=== PATIENT | female | born 1970 | race Caucasian/White ===

== ENCOUNTER 2024-03-31 12:56 | Emergency (ER) | payer BC, SELFPAY ==
[2024-03-31 12:58] VITALS: BP 166/70; PULSE 61; RESP 20; TEMP 35.6; O2SAT 100; BMI 49.6
--- NOTE | 2024-03-31 13:29 | ED.VIS.GI ---
HPI HPI - GI History of Present Illness Chief Complaint: Nausea/Vomiting Informant: patient and spouse/S.O. Nausea/Vomiting/Emesis GI Symptom: Positive for Nausea and Vomiting Onset: Today Severity: Mild Diarrhea/Melena/Hematochezia GI Symptom: Negative for Diarrhea, Melena or Hematochezia Associated Symptoms Associated Symptoms: Negative for Dysuria, Frequency, Hematuria or Urgency Narrative Narrative: 53-year-old female history gastroparesis, irritable bowel, vertigo, fibromyalgia, A-fib on Eliquis. Started having nausea and vomiting today. Recently had vertigo type symptoms which she has had before. got her [id number] meclizine which has helped her symptoms. Recently she was diagnosed with sinus infection and was on 10 days of doxycycline which is been finished. She denies any headache. She denies any diarrhea or melena. She really denies any abdominal pain. No dysuria. Prior similar symptoms: Yes Recent Illness/Hospitalization: No PFSH PFSH Medical History Hyperlipemia Hiatal hernia Sciatic leg pain Asthma Gastroparesis Irritable bowel syndrome Acid reflux Spinal stenosis Migraine Venous insufficiency Fibromyalgia PMR (polymyalgia rheumatica) Rheumatoid arthritis HTN (hypertension) Afib Aneurysm Home Medications ?Medication ?Instructions ?Recorded ?Last Taken ?Type apixaban 5 mg tablet (Eliquis) 5 mg PO BID 03/31/24 Unknown History cholecalciferol (vitamin D3) 50 2,000 unit PO BID 03/31/24 Unknown History mcg (2,000 unit) capsule (D3-2000) estradiol 1 mg tablet 1 mg PO DAILY 03/31/24 Unknown History etodolac 400 mg tablet 400 mg PO BID 03/31/24 Unknown History folic acid 1 mg tablet 1 mg PO DAILY 03/31/24 Unknown History furosemide 20 mg tablet 20 mg PO DAILY PRN edema 03/31/24 Unknown History gabapentin 100 mg capsule 100 mg PO BID 03/31/24 Unknown History glucosamine-chondroitin 250 mg-200 2 tab PO TID 03/31/24 Unknown History mg tablet (Osteo Bi-Flex) meclizine 25 mg chewable tablet 25 mg PO TID PRN dizziness #14 tabs 03/31/24 Unknown Rx (Antivert) metoprolol succinate 50 mg PO DAILY 03/31/24 Unknown History omega-3 fatty acids 1,000 mg 1,000 mg PO DAILY 03/31/24 Unknown History capsule omeprazole 40 mg capsule,delayed 40 mg PO DAILY 03/31/24 Unknown History release ondansetron 4 mg disintegrating 4 mg PO Q6H PRN nausea and 03/31/24 Unknown Rx tablet vomiting #10 tabs potassium chloride 10 mEq 10 meq PO DAILY 03/31/24 Unknown History capsule,extended release rizatriptan 10 mg tablet (Maxalt) 10 mg PO Q2H PRN migraine headache 03/31/24 Unknown History tizanidine 4 mg capsule (Zanaflex) 4 mg PO QHS 03/31/24 Unknown History ubidecarenone-omega 3-vit E 50 1 cap PO DAILY 03/31/24 Unknown History mg-300 (180-120)mg-30 unit capsule Allergy/AdvReac Type Severity Reaction Status Date / Time Iodinated Contrast Media Allergy Severe Hives Verified 03/31/24 13:11 (contrast dye - iodinated) Penicillins (PCN) AdvReac Severe Anaphylaxis Verified 03/31/24 13:11 albuterol AdvReac Mild Other Verified 03/31/24 13:11 Social History household members: spouse housing: house Smoking Status: Former smoker ROS ROS ED ROS Narrative Nausea and vomiting. Review of Systems ROS Unobtainable: Denies due to encephalopathy Constitutional Constitutional ED: Denies chills or fever(s) ENT ENT ED: Denies ear pain Cardiovascular Cardiovascular: Denies chest pain Respiratory/Chest Respiratory/Chest: Denies cough or dyspnea Gastrointestinal Gastrointestinal: Reports nausea and vomiting; Denies abdominal pain, constipation, diarrhea or melena Genitourinary Genitourinary ED: Denies dysuria or hematuria Musculoskeletal Musculoskeletal: Denies arthralgias Integumentary Denies abscess or Abrasions Neurologic Neurologic: Denies headache(s) Psychiatric Psychiatric: Denies anxiety Endocrine Endocrinology: Denies polydipsia Hematologic/Lymphatic Hematologic/Lymphatic: Denies lymphadenopathy Allergic/Immunologic Allergic/Immunologic ED: Denies mouth swelling, tongue swelling or urticaria EXAM Physical Exam Narrative Exam Narrative: Otherwise female vital signs stable afebrile. Lying in bed. H EENT exam pupils round react to light. No facial droop. No trauma. Moist extremities. Neck nontender no lymphadenopathy. Lungs clear to auscultation bilaterally. Heart regular rate about 60 no murmur. Chest wall ribs nontender. Abdomen soft, nontender nondistended, normal bowel sounds without peritoneal signs. No hernia or mass. No distention. No right upper or lower quadrant tenderness. Moving all 4 extremities. Nontender no edema. 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 Dorsi plantarflexion intact. Neurologically awake and alert no focal motor deficits. Benign exam. Back nontender. Const Vital Signs: 03/31/24 12:58 Temperature 96.1 F L Temperature Source Temporal Pulse Rate 61 Respiratory Rate 20 H Blood Pressure 166/70 H Blood Pressure Mean 102 Pulse Ox 100 Oxygen Delivery Method Room Air Positive well nourished and well developed; Negative for cachectic, contractures or unkempt General Appearance ED: well developed and NAD; Negative for unkempt, cachectic, contractures or pallor Nutritional Appearance: Negative for cachectic HEENT Reports moist mucous membranes; Denies dry mucous membranes normocephalic and atraumatic; Negative for trauma or tenderness Mouth ED: No dry mucous membranes Mouth: No dry mucous membranes Eyes PERRL and EOMs intact bilaterally General Eye ED: Negative for pale conjunctiva, scleral icterus or other Neck no lymphadenopathy, supple and no JVD General: Negative for tenderness Carotids: Negative for other Lymph Lymphatic: Negative for other Resp normal respiratory effort and clear to auscultation bilaterally Effort and Inspection: Negative for respiratory distress Auscultation: Negative for rales, rhonchi, wheezes, diminished lung sounds or other Cardio regular rate, regular rhythm, S1 normal heart sound, S2 normal heart sound and no murmurs Rate: Negative for bradycardia or tachycardic GI non-tender, non-distended and no masses Inspection: Negative for abdominal distention Auscultation: normoactive bowel sounds Palpation: soft; Negative for tender, guarding or rebound tenderness present Back/Spine no CVA tenderness General Back: Negative for CVA tenderness Cervical Spine: Negative for cervical spine tenderness Thoracic Spine / Upper Back: Negative for thoracic spinal tenderness Lumbar Spine / Lower Back: Negative for lumbar spinal tenderness Coccyx: Negative for other Extremity full ROM General Extremety ED: Negative for edema or tenderness General Extremity: Negative for edema Neuro CN's II-XII intact bilaterally and moves all extremities Sensorium / Orientation: alert, oriented to person, oriented to place and oriented to time; Negative for orientation impaired, confused, lethargic or stuporous Motor Exam: strength 5/5 throughout; Negative for general weakness or strength abnormal Psych mental status grossly normal and thought process normal Appearance: Negative for unkempt Attitude: No agitated Mood & Affect: Negative for depressed, anxious or tearful Skin no wounds General Skin Exam: Negative for jaundice or pallor Lesions: no lesions Rashes: no rashes Trauma: Negative for abrasion Nails: Negative for discolored MDM MDM MDM Narrative Medical decision making narrative: 53-year-old female with nausea and vomiting. Benign exam. Treated with IV fluids and IV Zofran. Screening labs. I do not think she needs imaging of her abdomen. Abdomen is soft without peritoneal signs or tenderness. Repeat exam at 3:05 PM patient doing well. Abdomen benign. Very written for Zofran for nausea. Meclizine for her dizziness. Outpatient follow-up. Return if worse. Repeat exam is unremarkable. Her neurologic exam is normal. Lab Data Attestation: I reviewed the patient's lab results. Lab results narrative: CBC shows a white count of 6. H&H of 12 and 38. Platelets 234. Electrolytes unremarkable. Gap is 6. Normal BUN and creatinine. Liver enzymes are normal. Glucose 97. Labs: Laboratory Results - last 24 hr 03/31/24 03/31/24 03/31/24 13:46 13:46 14:20 WBC Cancelled 6.1 Corrected WBC Cancelled RBC Cancelled 4.10 L Hgb Cancelled 12.4 Hct Cancelled 38.6 MCV Cancelled 94.1 MCH Cancelled 30.2 MCHC Cancelled 32.1 RDW Std Deviation Cancelled 51.3 H RDW Coeff of Malcom Cancelled 14.6 Plt Count Cancelled 234 MPV Cancelled 9.6 Immature Gran % (Auto) Cancelled 0.500 Neut % (Auto) Cancelled 74.6 H Lymph % (Auto) Cancelled 13.0 L Murray % (Auto) Cancelled 10.0 Eos % (Auto) Cancelled 1.6 Baso % (Auto) Cancelled 0.3 Absolute Neuts (auto) Cancelled 4.6 Absolute Lymphs (auto) Cancelled 0.79 L Total Counted Cancelled Neutrophils % (Manual) Cancelled Band Neutrophils % Cancelled Lymphocytes % (Manual) Cancelled Monocytes % (Manual) Cancelled Eosinophils % (Manual) Cancelled Basophils % (Manual) Cancelled Metamyelocytes % Cancelled Myelocytes % Cancelled Promyelocytes % Cancelled Blast Cells % Cancelled Plasma Cell % (Manual) Cancelled Other Cells % Cancelled Nucleated RBC % Cancelled 0 Nucleated RBCs/100 WBC Cancelled Differential Comment Cancelled Diff Path Review Cancelled Hypersegmented Neuts Cancelled Atypical Lymphocytes Cancelled Reactive Lymphocytes Cancelled Smudge Cells Cancelled Toxic Granulation Cancelled Toxic Vacuolation Cancelled Dohle Bodies Cancelled Jhon Rods Cancelled Platelet Estimate Cancelled Plt Morphology Comment Cancelled RBC Morphology Cancelled Cancelled Polychromasia Cancelled Hypochromasia Cancelled Basophilic Stippling Cancelled Anisocytosis Cancelled Microcytosis Cancelled Macrocytosis Cancelled Spherocytes Cancelled Sickle Cells Cancelled Target Cells Cancelled Tear Drop Cells Cancelled Ovalocytes Cancelled Stomatocytes Cancelled Howard-Crumpton Bodies Cancelled Jesika Cells Cancelled Bite Cells Cancelled Crenated Cell Cancelled Acanthocytes (Spur) Cancelled Rouleaux Cancelled Schistocytes Cancelled Sodium 137 Potassium 4.8 Chloride 107 Carbon Dioxide 24.0 Anion Gap 6 BUN 11 Creatinine 0.90 Estim Creat Clear Calc 112.64 Est GFR (MDRD) Af Amer 84 Est GFR (MDRD) Non-Af 70 BUN/Creatinine Ratio 12.2 Glucose 97 Calcium 9.5 Total Bilirubin 0.50 AST 56 H ALT 24 Alkaline Phosphatase 80 Total Protein 7.8 Albumin 3.4 Globulin 4.4 H Albumin/Globulin Ratio 0.8 L Discharge Plan Triage Chief Complaint: Nausea/Vomiting ED Provider: Mo Bustamante Dx/Rx/DC Orders Clinical Impression: Nausea & vomiting, Dizziness, Vertigo, History of atrial fibrillation, Chronic anticoagulation Instructions: Vertigo Medicine Tx, ED Vomiting (Adult) Prescriptions: New ondansetron 4 mg tablet,disintegrating 4 mg PO Q6H PRN (Reason: nausea and vomiting) Qty: 10 0RF meclizine [Antivert] 25 mg tablet,chewable 25 mg PO TID PRN (Reason: dizziness) Qty: 14 0RF No Action etodolac 400 mg tablet 400 mg PO BID gabapentin 100 mg capsule 100 mg PO BID furosemide 20 mg tablet 20 mg PO DAILY PRN (Reason: edema) potassium chloride 10 mEq capsule, extended release 10 meq PO DAILY omeprazole 40 mg capsule,delayed release(DR/EC) 40 mg PO DAILY metoprolol succinate 50 mg PO DAILY estradiol 1 mg tablet 1 mg PO DAILY Rx Instructions: off 1 week; repeat cycle Eliquis 5 mg tablet 5 mg PO BID folic acid 1 mg tablet 1 mg PO DAILY cholecalciferol (vitamin D3) [D3-2000] 50 mcg (2,000 unit) capsule 2,000 unit PO BID ubidecarenone-omega 3-vit E 50-300-30 mg-mg-unit capsule 1 cap PO DAILY omega-3 fatty acids 1,000 mg capsule 1,000 mg PO DAILY glucosamine-chondroitin [Osteo Bi-Flex] 250-200 mg tablet 2 tab PO TID Rx Instructions: give after food/meal tizanidine [Zanaflex] 4 mg capsule 4 mg PO QHS rizatriptan [Maxalt] 10 mg tablet 10 mg PO Q2H PRN (Reason: migraine headache) Rx Instructions: do not exceed 3 doses per 24 hrs Primary Care Provider: TALIA MONTES Referrals: TALIA MONTES [Other] Activity Restrictions/Additional Instructions: Zofran as needed for nausea. You may swallow or let it dissolve under your tongue. Meclizine or Antivert for your dizziness. Outpatient follow-up if not improving or return if worse. Print Language: [place] Disposition Disposition: Home, Self Care
[2024-03-31 14:16] LABS: ALB/GLOB Ratio 0.8 RATIO (0.9-2.4); AST(SGOT) 56 U/L (15-37); Alanine Aminotransfer ALT/SGPT 24 U/L (13-56); Albumin, Serum 3.4 g/dL (3.2-5.0); Alkaline Phosphatase 80 U/L (45-117); Anion Gap 6 (5-15); BUN 11 mg/dL (7-18); BUN/Creat Ratio 12.2 RATIO (10-20); Calcium,Total 9.5 mg/dL (8.5-10.1); Chloride 107 mmol/L (98-107); EST Glomerular Filtration Rate 70 mL/min (>60); Est Glom Filt Rate - Afr Amer 84 mL/min (>60); Estimated Creatinine Clearance 112.64 ml/min; Globulin 4.4 g/dL (2.2-4.2); Glucose 97 mg/dL (74-106); Potassium 4.8 mmol/L (3.5-5.1); Protein, Total 7.8 g/dL (6.4-8.2); Sodium Level 137 mmol/L (136-145)
[2024-03-31] MEDS: 0.9% Normal Saline (1000mL) 1,000 ML 999 ML IV (14:22)
[2024-03-31] MEDS: Ondansetron 4 MG/2 ML Vial IV (14:22)
[2024-03-31 14:27] LABS: Absolute Lymphocyte Count 0.79 X10^3/uL (0.83-4.51); Absolute Neutrophil Count 4.6 X10^3/uL (2.0-7.7); Basophil# 0.02 X10^3/uL; Basophil% 0.3 % (0-1); Eosinophils% 1.6 % (0-5); Hematocrit 38.6 % (37-47); Hemoglobin 12.4 g/dL (12.0-15.0); Lymphocyte # 0.79 X10^3/ul (0.83-4.51); Mean Corp Hgb Conc 32.1 g/dL (32-36); Mean Corpuscular Hgb 30.2 pg (27.0-32.0); Mean Corpuscular Volume 94.1 fL (81-99); Mean Platelet Vol. 9.6 fl (6.2-12.0); Monocyte# 0.61 X10^3/uL; NRBC Flagged by Analyzer 0 % (0-5); Neutrophil # 4.55 X10^3/uL (2.7-7.7); Neutrophil % 74.6 % (47-70); Platelet Count 234 K/mm3 (150-450); RBC Distribution Width CV 14.6 % (11.6-14.6); RBC Distribution Width SD 51.3 fl (35.1-43.9); White Blood Count 6.1 K/mm3 (4.4-11.0)
[2024-03-31 15:00] VITALS: BP 160/65; PULSE 63; RESP 17; O2SAT 98
[2024-03-31 15:33] VITALS: BP 149/97; PULSE 66; RESP 27; TEMP 36.6; O2SAT 97
== END 2024-03-31 15:42 | disposition home or self-care (01) ==
PROVIDERS: Emergency Provider Emergency Medicine; Visit Provider Emergency Medicine
DX: R11.2 Nausea with vomiting, unspecified (principal); I48.91 Unspecified atrial fibrillation; Z87.891 Personal history of nicotine dependence; R42 Dizziness and giddiness; K58.0 Irritable bowel syndrome with diarrhea; M79.7 Fibromyalgia; K31.84 Gastroparesis; E78.5 Hyperlipidemia, unspecified; J45.909 Unspecified asthma, uncomplicated; I10 Essential (primary) hypertension; Z79.01 Long term (current) use of anticoagulants; Z79.899 Other long term (current) drug therapy
CPT/HCPCS: 80053; 85025; 96361; 96374; 99282; J7030; A4216; J2405